=== PATIENT | male | born 1975 ===

== ENCOUNTER 2016-11-17 00:21 | Emergency (ER) | payer MEDICAID ==
[2016-11-17 00:30] VITALS: BP 143/82; TEMP 97.9
[2016-11-17] MEDS ORDERED: Lidocaine 5% Patch TD STA (00:55)
[2016-11-17] MEDS ORDERED: Lidocaine 5% Patch TD ONE (00:59)
--- NOTE | 2016-11-17 02:03 | C.PDOC ---
History Of Present Illness 41 year old male with a history of chronic back pain, presents to the ED with complaints of sudden lower back pain for the past day. Patient states the pain is worse with movement and standing and denies trauma, fall, fever, abdominal pain, numbness, weakness, incontinence, or any other complaints at this time. Time Seen by Provider: 11/17/16 00:41 Chief Complaint (Nursing): Back Pain History Per: Patient History/Exam Limitations: no limitations Onset/Duration Of Symptoms: Days Current Symptoms Are (Timing): Still Present Quality Of Discomfort: "Pain" Severity: Mild Previous Symptoms: Back Pain Associated Symptoms: None Exacerbating Factor(s): Movement, Standing Past Medical History Reviewed: Historical Data, Nursing Documentation, Vital Signs Vital Signs: Last Vital Signs Temp 97.9 F 11/17/16 00:26 Pulse 80 11/17/16 03:09 Resp 22 11/17/16 03:09 BP 143/82 11/17/16 00:26 Pulse Ox 96 11/17/16 03:15 - Medical History PMH: Chronic Pain Family History: States: Unknown Family Hx - Social History Hx Tobacco Use: Yes Hx Alcohol Use: Yes Hx Substance Use: No Review Of Systems Except As Marked, All Systems Reviewed And Found Negative. Constitutional: Negative for: Fever, Chills Cardiovascular: Negative for: Chest Pain Respiratory: Negative for: Shortness of Breath Musculoskeletal: Positive for: Back Pain (+Lower back pain). Negative for: Neck Pain Neurological: Negative for: Weakness, Numbness Physical Exam - Physical Exam Appears: Non-toxic, No Acute Distress Skin: Normal Color, Warm, Dry Head: Atraumatic, Normacephalic Eye(s): bilateral: Normal Inspection Oral Mucosa: Moist Neck: Supple Chest: Symmetrical Respiratory: No Accessory Muscle Use Gastrointestinal/Abdominal: Soft, No Tenderness, No Distention Back: No Vertebral Tenderness, Muscle Spasm, Paraspinal Tenderness (+Diffuse paralumbar tenderness) Extremity: Normal ROM, No Deformity Neurological/Psych: Oriented x3, Normal Speech, Normal Cognition ED Course And Treatment O2 Sat by Pulse Oximetry: 96 (Room air) Pulse Ox Interpretation: Normal Medical Decision Making Medical Decision Making: Plan: -Flexeril -Toradol -Lidoderm -Reassess Progress: On reassessment, patient is resting comfortably, with improvement of back pain. Patient remains afebrile, with no bony tenderness, extremity numbness or weakness, or abdominal pain. Patient is ambulatory in the emergency department with no signs of discomfort. Patient was advised to follow up with physician/ clinic in 1-2 days. Disposition - Disposition Referrals: [facility] at [facility] [Outside] Disposition: HOME/ ROUTINE Disposition Time: 02:01 Condition: GOOD Additional Instructions: Follow up with the medical doctor within 1-2 days without fail. Return if worsened. Prescriptions: Naproxen [Naprosyn] 500 mg PO BID #20 tab traMADol [Ultram] 50 mg PO Q6 PRN #20 tab PRN Reason: Pain Diazepam [Valium] 2 mg PO TID #21 tab Instructions: Acute Low Back Pain (ED) - Clinical Impression Clinical Impression: Low back pain - PA / FINE ARTIST / Resident Statement MD/DO has reviewed & agrees with the documentation as recorded. - Scribe Statement The provider has reviewed the documentation as recorded by the Scribe Jory Collins. All medical record entries made by the Scribe were at my direction and personally dictated by me. I have reviewed the chart and agree that the record accurately reflects my personal performance of the history, physical exam, medical decision making, and the department course for this patient. I have also personally directed, reviewed, and agree with the discharge instructions and disposition.
[2016-11-17 03:10] VITALS: PULSE 80; RESP 22; O2SAT 96
== END 2016-11-17 03:10 | disposition home or self-care (01) ==
LOC: C.ER 00:21
DX: M54.5 Low back pain (principal)

== ENCOUNTER 2017-01-25 00:09 | Emergency (ER) | payer MEDICAID ==
[2017-01-25 00:16] VITALS: BP 142/82; RESP 20; O2SAT 98
[2017-01-25] MEDS ORDERED: Lidocaine 2% Inj (20ml) ONE (00:51)
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
[2017-01-25] MEDS ORDERED: Amoxicillin-Clav 875-125 mg Tab PO STA (02:20)
[2017-01-25 06:21] VITALS: PULSE 78; TEMP 98
== END 2017-01-25 06:19 | disposition home or self-care (01) ==
LOC: C.ER 00:09
DX: S01.511A Laceration without foreign body of lip, initial encounter (principal); Y08.89XA Assault by other specified means, initial encounter; Y93.89 Activity, other specified; Y92.89 Other specified places as the place of occurrence of the external cause; Z23 Encounter for immunization

== ENCOUNTER 2017-01-27 10:59 | Emergency (ER) | payer MEDICAID ==
[2017-01-27 11:25] VITALS: BP 91/62; PULSE 82; RESP 16; TEMP 98.1; O2SAT 98
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
== END 2017-01-27 12:01 | disposition home or self-care (01) ==
LOC: SUPCPDRO 10:59 → C.ER 10:59
DX: Z48.00 Encounter for change or removal of nonsurgical wound dressing (principal)

== ENCOUNTER 2017-04-14 16:08 | Emergency (ER) | payer MEDICAID ==
[2017-04-14 16:20] VITALS: BMI 28.0
--- NOTE | 2017-04-14 16:33 | C.PDOC ---
History Of Present Illness 41 y/o male presents to ED with complaints of left sided chest pain and sob starting this morning, and non productive cough for 1 week. Patient states pain is worse with deep breaths and when coughing. Patient admits to being a cigarette smoker. He denies Hx of Asthma, fever/chills, abdominal pain, rash, palpitations, falls/injuries. Time Seen by Provider: 04/14/17 16:29 Chief Complaint (Nursing): Chest Pain History Per: Patient History/Exam Limitations: no limitations Onset/Duration Of Symptoms: Days Current Symptoms Are (Timing): Still Present Severity: Mild Quality: "Pain" Past Medical History Reviewed: Historical Data, Nursing Documentation, Vital Signs Vital Signs: Last Vital Signs Temp 98.4 F 04/14/17 18:01 Pulse 91 H 04/14/17 18:01 Resp 18 04/14/17 18:01 BP 117/70 04/14/17 18:01 Pulse Ox 96 04/20/17 06:15 - Medical History PMH: Chronic Pain Family History: States: No Known Family Hx - Social History Hx Tobacco Use: Yes Hx Alcohol Use: Yes Hx Substance Use: No - Immunization History Hx Tetanus Toxoid Vaccination: Yes Hx Influenza Vaccination: Yes Hx Pneumococcal Vaccination: Yes Review Of Systems Except As Marked, All Systems Reviewed And Found Negative. Constitutional: Negative for: Fever, Chills Cardiovascular: Positive for: Chest Pain. Negative for: Palpitations Respiratory: Positive for: Cough, Shortness of Breath Gastrointestinal: Negative for: Nausea, Vomiting, Abdominal Pain, Diarrhea Skin: Negative for: Rash Physical Exam - Physical Exam Appears: Well, Non-toxic, No Acute Distress, Other (speaking in full sentences) Skin: Normal Color, Warm, Dry, No Rash Head: Normacephalic Eye(s): bilateral: Normal Inspection Oral Mucosa: Moist Chest: Symmetrical, No Deformity, Tenderness (Anterior chest mild TTP), No Ecchymosis, No Subcutaneous Emphysema Cardiovascular: Rhythm Regular Respiratory: No Rales, No Rhonchi, Wheezing (expiratory wheezing B/L) Gastrointestinal/Abdominal: Normal Exam, Bowel Sounds, Soft, No Tenderness Extremity: No Pedal Edema, No Calf Tenderness Neurological/Psych: Oriented x3 ED Course And Treatment ECG: Interpreted By Me, Viewed By Me ECG Rhythm: Sinus Rhythm Interpretation Of ECG: Normal access, No acute ST/T wave changes Rate From EC (bpm) O2 Sat by Pulse Oximetry: 96 (RA) Pulse Ox Interpretation: Normal - Other Rad Chest X-Ray: Interpreted by Me, Viewed By Me, Read By Radiologist Interpretation: HISTORY: CP. COMPARISON: No prior. TECHNIQUE: Chest PA and lateral. FINDINGS: LUNGS: No active pulmonary disease. PLEURA: No significant pleural effusion identified. No pneumothorax apparent. CARDIOVASCULAR: Normal. OSSEOUS STRUCTURES: No significant abnormalities. VISUALIZED UPPER ABDOMEN: Normal. OTHER FINDINGS: None. IMPRESSION: No active disease. Progress Note: CXR and EKG ordered and reviewed. Patient given PO prednisone, PO tylenol and albuterol nebulizer treatment. Reevaluation Time: 18:15 Reassessment Condition: Improved (On reassessment, patient states he is feeling better. On exam, he has good air entry B/L without wheezxing or accessory muslce use. POx 99% on RA, and peak flow done by me is 300. Rxs for prednisone , albuterol inhaler, tessalon and naprosyn given, and patient instructed to follow up with PMD/clinic in 1-2 days. He undertands he should return to ED if symptoms worsen.) Disposition Counseled Patient/Family Regarding: Studies Performed, Diagnosis, Need For Followup, Rx Given - Disposition Referrals: [facility] [Outside] Disposition: HOME/ ROUTINE Disposition Time: 17:50 Condition: STABLE Additional Instructions: FOLLOW UP WITH YOUR DOCTOR/CLINIC IN 1-2 DAYS USE MEDICATIONS DIRECTED RETURN TO ER IF SYMPTOMS WORSEN Prescriptions: Albuterol HFA [Ventolin HFA 90 mcg/actuation (8 g)] 0.09 mg IH Q4 PRN #1 puff PRN Reason: Wheezing Benzonatate [Tessalon Perles] 100 mg PO BID PRN #15 sgl PRN Reason: Cough Naproxen [Naprosyn Tab] 375 mg PO BID PRN #20 tab PRN Reason: pain predniSONE [predniSONE Tab] 40 mg PO DAILY #6 tab Instructions: Upper Respiratory Infection (ED), Wheezing (ED) Forms: [employer] (Samoan) Print Language: GUINEAN - POA Present On Arrival: None - Clinical Impression Clinical Impression: Pleuritic chest pain, Upper respiratory infection, Wheezing - Scribe Statement The provider has reviewed the documentation as recorded by the Talisha Núñez All medical record entries made by the Scribe were at my direction and personally dictated by me. I have reviewed the chart and agree that the record accurately reflects my personal performance of the history, physical exam, medical decision making, and the department course for this patient. I have also personally directed, reviewed, and agree with the discharge instructions and disposition.
[2017-04-14] MEDS ORDERED: Albuterol-Ipratrop 3 mg / 0.5 (3 ml) UD INH STA (16:49)
[2017-04-14] MEDS ORDERED: Albuterol-Ipratrop 3 mg / 0.5 (3 ml) UD ONE (16:56)
--- NOTE | 2017-04-14 17:05 | RAD ---
HISTORY: CP COMPARISON: No prior. TECHNIQUE: Chest PA and lateral FINDINGS: LUNGS: No active pulmonary disease. PLEURA: No significant pleural effusion identified. No pneumothorax apparent. CARDIOVASCULAR: Normal. OSSEOUS STRUCTURES: No significant abnormalities. VISUALIZED UPPER ABDOMEN: Normal. OTHER FINDINGS: None. IMPRESSION: No active disease.
[2017-04-14 18:01] VITALS: BP 117/70; PULSE 91; RESP 18; TEMP 98.4
[2017-04-14 18:03] VITALS: O2SAT 96
--- NOTE | 2017-04-18 18:22 | CARD ---
APPROVED REPORT EKG Measurement Heart [id number] <Conclusion> Normal sinus rhythm Normal ECG
== END 2017-04-14 18:21 | disposition home or self-care (01) ==
LOC: C.ER 16:08
DX: J06.9 Acute upper respiratory infection, unspecified (principal); Z72.0 Tobacco use